=== PATIENT | male | born 1995 | race Two or more races ===

== ENCOUNTER 2018-08-19 11:54 | Emergency (ER) | payer SELFPAY ==
[~2018-08-19] VITALS: Ht 162.6 cm; Wt 50.2 kg
[2018-08-19] MEDS ORDERED: IOHEXOL 300 MG/ML 100ML VIAL. IV ONE (13:45)
[2018-08-19 13:58] LABS: BASO % 0 % (0-3); EOS % 0 % (0-3); HEMATOCRIT 42.6 % (39.0-53.0); HEMOGLOBIN 14.7 g/dL (13.0-17.5); LYMPH # 0.9 x10^3/uL (1.0-4.8); LYMPH % 9 % (24-48); MEAN CORPUSCULAR HEMOGLOBIN 33 pg (25-35); MEAN CORPUSCULAR HGB CONC 35 g/dL (31-37); MEAN CORPUSCULAR VOLUME 94 fL (79-100); MONO # 0.7 x10^3/uL (0.0-1.1); MONO % 7 % (0-9); NEUT # 8.3 x10^3/uL (1.8-7.7); NEUT % 83 % (31-73); PLATELET COUNT 256 x10^3/uL (140-400); RED BLOOD COUNT 4.54 x10^6/uL (4.30-5.70); RED CELL DISTRIBUTION WIDTH 12.8 % (11.5-14.5)
[2018-08-19] MEDS ORDERED: CONTRAST GIVEN. MC PRN (14:00)
[2018-08-19 14:14] LABS: CREATININE 0.9 mg/dL (0.7-1.3); GFR 105.5; POTASSIUM 3.7 mmol/L (3.5-5.1)
--- NOTE | 2018-08-19 14:54 | RAD ---
CT scan of the facial bones without contrast 08/19/2018 CLINICAL HISTORY: Right facial swelling. TECHNIQUE: After the intravenous administration of 70 cc of Omnipaque 300, contiguous, 0.625 mm axial sections were obtained through the facial bones and orbits. 3 mm reconstructed sagittal, axial and coronal images were obtained. One or more of the following individualized dose reduction techniques were utilized for this study: 1. Automated exposure control. 2. Adjustment of the mA and/or kV according to patient size. 3. Use of iterative reconstruction technique. FINDINGS: Soft tissue swelling and edema is seen involving the right facial soft tissues. No abnormal fluid collection is seen to suggest evidence of an abscess. The orbits are within normal limits. The mucosal structures of the nasopharynx oropharynx and hypopharynx are within normal limits. The parotid and submandibular glands are within normal limits. The visualized thyroid gland is within normal limits. Moderate mucosal thickening is seen involving the right maxillary sinus. A 8 mm mucous retention cyst is seen involving the left maxillary sinus. Impaction of the right upper third molar is seen. No periapical lucency is noted within the mandible or maxilla. IMPRESSION: Right facial soft tissue swelling and edema. No abscess is seen. Electronically signed by: Devonte Sultana MD (08/19/2018 2:50 PM) [id number]
--- NOTE | 2018-08-19 15:22 | PHYS DOC ---
Past Medical History Past Medical History: No Pertinent History Past Surgical History: No Surgical History Alcohol Use: None Drug Use: None Adult General Chief Complaint Chief Complaint: DENTAL PROBLEM HPI HPI Patient is a 23 year old [f__sex] who presents with [] Review of Systems Review of Systems Constitutional: Denies fever or chills [] Eyes: Denies change in visual acuity, redness, or eye pain [] HENT: Denies nasal congestion or sore throat [] Respiratory: Denies cough or shortness of breath [] Cardiovascular: No additional information not addressed in HPI [] GI: Denies abdominal pain, nausea, vomiting, bloody stools or diarrhea [] : Denies dysuria or hematuria [] Musculoskeletal: Denies back pain or joint pain [] Integument: Denies rash or skin lesions [] Neurologic: Denies headache, focal weakness or sensory changes [] Endocrine: Denies polyuria or polydipsia [] All other systems were reviewed and found to be within normal limits, except as documented in this note. Current Medications Current Medications Current Medications Medications (Trade) Dose Ordered Sig/Tom Start Time Stop Time Status Last Admin Dose Admin Info (CONTRAST GIVEN -- Rx MONITORING) 1 each PRN DAILY PRN 08/19/18 14:00 08/21/18 13:59 Iohexol (Omnipaque 300 Mg/ml) 70 ml 1X ONCE 08/19/18 13:45 08/19/18 13:48 DC 08/19/18 13:45 70 ML Allergies Allergies Allergies Coded Allergies Type Severity Reaction Last Updated Verified No Known Drug Allergies 08/19/18 No Physical Exam Physical Exam Constitutional: Well developed, well nourished, no acute distress, non-toxic appearance. [] HENT: Normocephalic, atraumatic, bilateral external ears normal, oropharynx moist, no oral exudates, nose normal. [] Eyes: PERRLA, EOMI, conjunctiva normal, no discharge. [] Neck: Normal range of motion, no tenderness, supple, no stridor. [] Cardiovascular:Heart rate regular rhythm, no murmur [] Lungs & Thorax: Bilateral breath sounds clear to auscultation [] Abdomen: Bowel sounds normal, soft, no tenderness, no masses, no pulsatile masses. [] Skin: Warm, dry, no erythema, no rash. [] Back: No tenderness, no CVA tenderness. [] Extremities: No tenderness, no cyanosis, no clubbing, ROM intact, no edema. [] Neurologic: Alert and oriented X 3, normal motor function, normal sensory function, no focal deficits noted. [] Psychologic: Affect normal, judgement normal, mood normal. [] Current Patient Data Vital Signs Vital Signs Date Time Temp Pulse Resp B/P (MAP) Pulse Ox O2 Delivery O2 Flow Rate FiO2 08/19/18 12:55 98.8 79 18 131/70 (90) 99 Room Air 98.8 Lab Values Laboratory Tests Test 08/19/18 13:35 White Blood Count 10.0 x10^3/uL (4.0-11.0) Red Blood Count 4.54 x10^6/uL (4.30-5.70) Hemoglobin 14.7 g/dL (13.0-17.5) Hematocrit 42.6 % (39.0-53.0) Mean Corpuscular Volume 94 fL (79-100) Mean Corpuscular Hemoglobin 33 pg (25-35) Mean Corpuscular Hemoglobin Concent 35 g/dL (31-37) Red Cell Distribution Width 12.8 % (11.5-14.5) Platelet Count 256 x10^3/uL (140-400) Neutrophils (%) (Auto) 83 % (31-73) H Lymphocytes (%) (Auto) 9 % (24-48) L Monocytes (%) (Auto) 7 % (0-9) Eosinophils (%) (Auto) 0 % (0-3) Basophils (%) (Auto) 0 % (0-3) Neutrophils # (Auto) 8.3 x10^3/uL (1.8-7.7) H Lymphocytes # (Auto) 0.9 x10^3/uL (1.0-4.8) L Monocytes # (Auto) 0.7 x10^3/uL (0.0-1.1) Eosinophils # (Auto) 0.0 x10^3/uL (0.0-0.7) Basophils # (Auto) 0.0 x10^3/uL (0.0-0.2) Sodium Level 142 mmol/L (136-145) Potassium Level 3.7 mmol/L (3.5-5.1) Chloride Level 104 mmol/L (98-107) Carbon Dioxide Level 29 mmol/L (21-32) Anion Gap 9 (6-14) Blood Urea Nitrogen 10 mg/dL (8-26) Creatinine 0.9 mg/dL (0.7-1.3) Estimated GFR (Cockcroft-Gault) 105.5 Glucose Level 88 mg/dL (70-99) Calcium Level 9.0 mg/dL (8.5-10.1) Laboratory Tests 08/19/18 13:35 Laboratory Tests 08/19/18 13:35 EKG EKG [] Radiology/Procedures Radiology/Procedures PROCEDURE: CT MAXILLOFACIAL W/CONTRAST CT scan of the facial bones without contrast 08/19/2018 CLINICAL HISTORY: Right facial swelling. TECHNIQUE: After the intravenous administration of 70 cc of Omnipaque 300, contiguous, 0.625 mm axial sections were obtained through the facial bones and orbits. 3 mm reconstructed sagittal, axial and coronal images were obtained. One or more of the following individualized dose reduction techniques were utilized for this study: 1. Automated exposure control. 2. Adjustment of the mA and/or kV according to patient size. 3. Use of iterative reconstruction technique. FINDINGS: Soft tissue swelling and edema is seen involving the right facial soft tissues. No abnormal fluid collection is seen to suggest evidence of an abscess. The orbits are within normal limits. The mucosal structures of the nasopharynx oropharynx and hypopharynx are within normal limits. The parotid and submandibular glands are within normal limits. The visualized thyroid gland is within normal limits. Moderate mucosal thickening is seen involving the right maxillary sinus. A 8 mm mucous retention cyst is seen involving the left maxillary sinus. Impaction of the right upper third molar is seen. No periapical lucency is noted within the mandible or maxilla. IMPRESSION: Right facial soft tissue swelling and edema. No abscess is seen.[] Course & Med Decision Making Course & Med Decision Making Pertinent Labs and Imaging studies reviewed. (See chart for details) [] Dragon Disclaimer Dragon Disclaimer This electronic medical record was generated, in whole or in part, using a voice recognition dictation system. Departure Departure Impression: Primary Impression: Facial cellulitis Disposition: HOME, SELF-CARE Condition: STABLE Referrals: NO PCP (PCP) Patient Instructions: Cellulitis, [id number] Additional Instructions: Fill prescriptions and use as directed. Tylenol or ibuprofen as needed for pain. Follow up with your doctor this week, return to the ER if your symptoms worsen. Scripts Prednisone (PREDNISONE) 20 Mg Tablet 2 TAB PO DAILY for 4 Days, #8 TAB 0 Refills begin taking on 08/20/18 Prov: DARRIUS LICONA APRN 08/19/18 Clindamycin Hcl (CLINDAMYCIN HCL) 150 Mg Capsule 450 MG PO TID for 10 Days, #90 CAP 0 Refills Prov: DARRIUS LICONA APRN 08/19/18 DARRIUS LICONA APRN Aug 19, 2018 15:21
[2018-08-19] MEDS ORDERED: PRED20TA PO (15:28)
[2018-08-19] MEDS ORDERED: CLIN150C14 PO (15:28)
[2018-08-19] MEDS ORDERED: DEXAMETHASONE SOD PHOS 20 MG/5 ML VIAL. PO ONE (15:30)
[2018-08-19 16:33] VITALS: BP 98/60
== END 2018-08-19 16:35 | disposition home or self-care (01) ==
LOC: ER 11:54
DX: L03.211 Cellulitis of face (principal)
CPT/HCPCS: 36415; 70487; 80048; 85025; 99285; J1100; Q9967